=== PATIENT | male | born 1975 | race Hispanic/Latino ===

== ENCOUNTER 2020-06-29 23:12 | Observation (INO) | payer BC ==
--- OUTSIDE RECORDS SUMMARY | 2020-06-29 23:15 | XMS REPORT ---
:1975 Author Organization eClinicalWorks Care Team Providers Name Role Phone Imelda Rogersh Provider Role Unavailable Allergies, Adverse Reactions, Alerts Substance Reaction Event Type N.K.D.A. Info Not Available Non Drug Allergy Problems Problem Type Condition Code Onset Dates Condition Statu s Problem BMI 36.0-36.9,adult Z68.36 Active Problem Calculus of gallbladder without K80.20 Active cholecystitis without obstruction Problem Fatigue, unspecified type R53.83 Ac tive Assessment LUQ abdominal pain R10.12 Active Problem Hypersomnia G47.10 Active Problem Erectile dysfunction, unspecified N52.9 Active erectile dysfunction type Problem Prediabetes R73.03 Active Problem GERD without esophagitis K21.9 Act costa Problem Obstructive sleep apnea (adult) G47.33 Active (pediatric) Problem Mixed hyperlipidemia E78.2 Active Problem Dependence 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
--- OUTSIDE RECORDS SUMMARY | 2020-06-29 23:15 | XMS REPORT | Continuity of Care Document ---
:1975 Author Organization [facility] t Address [address] [place] [address] Care Team Providers Name Role Phone Unavailable Unavailable Unavailable Problems Condition Condition Condition Status Onset Resolution Last Treating Co mments Source Name Details Category Date Date Treatment Clinician Date Hypersomni Hypersomni Problem Active [facility] Fatigue, Fatigue, Problem [facility] BMI BMI Problem Active [facility] 36[facility]0-36.[facility], 36.0-36.9, [facility] - adult [facility] Prediabete Prediabete Problem Active [facility] Erectile Erectile Problem Active [facility] dysfunctio dysfunctio [facility] - n, n, [facility]oria unspecifie unspecifie l d erectile d erectile Ou tpati dysfunctio dysfunctio en t n type n type Clinics Dependence Dependence Problem Active [facility] other on other [facility] - enabling enabling Memori a machines machines l and and Outpati devices devices ent Clinics Mixed Mixed Problem Active [facility] hyperlipid hyperlipid [facility] - emia emia [facility] Calculus Calculus Problem Active [facility] - gallbladde gallbladde Me moria r without r without l cholecysti cholecysti Ou tpati tis tis ent without without Clinics obstructio obstructio n n Vitamin D Vitamin D Problem Active [facility] deficiency deficiency [facility] Obstructiv Obstructiv Problem Active [facility] e sleep e sleep [facility] - apnea apnea Memoria (adult) (adult) l (pediatric (pediatric Ou tpati ) ) ent Clinics GERD GERD Problem Active [facility] without without [facility] - esophagiti esophagiti Me moria s s l [facility] ent Clinics LUQ LUQ Diagnosis Active [facility] abdominal abdominal Luke s - pain pain [facility] Allergies, Adverse Reactions, Alerts This patient has no known allergies or adverse reactions. Medications Ordered Filled Start Stop Current Ordering Indication Dosage Frequency Signature Comments Components Source Medication Medication Date Date Medication? Clinician (SIG) Name Name Omeprazole Omeprazole 2019-0 Yes Naveed [address] [facility] [address] [facility] - 00:[facility]: [facility] 00 [facility] Vitamin D Vitamin D Yes Naveed [address] [facility] Immunizations Ordered Filled Immunization Date Status Comments Sourc e Immunization Name Name TDAP > 7 TDAP > 7 2018-10-[address] [facility] - Years-Adacel Years-Adacel 00:00:00 [facility] Afluria Afluria 2018-10-[address] [facility] 00[facility]00 [facility] Procedures This patient has no known procedures. Encounters Start End Encounter Admission Attending Care Care Encounter Source Date/Time Date/Time Type Type Clinicians Facility Department ID 2020-05-27 2020-05-27 [facility] [id number] [facility] 15:20:00 15:20:00 t [facility] 2020-03-19 2020-03-19 [facility] [id number] [facility] 16:00:00 16:00:00 t [facility] 2019-11-19 2019-11-19 [facility] [id number] [facility] 16:45:00 16:45:00 [facility] 2019-11-05 2019-11-05 [facility] [id number] [facility] 08:30:00 08:30:00 t [facility] 2019-08-30 2019-08-30 [facility] [id number] 08[facility]00:00 08:00:00 t [facility] Medicine Outpati ent Clinics 2019-08-19 2019-08-19 [facility] [id number] 10:07:00 10:07:00 t [facility] Medicine Outpati ent Clinics 2019-06-20 2019-06-20 [facility] [id number] [facility] 14:00:00 14:00:00 t [facility] Medicine Outpati ent Clinics 2019-05-21 2019-05-21 [facility] [id number] [address] 09:00:00 09:00:00 t [facility] Medicine Outpati ent Clinics 2019-04-29 2019-04-29 [facility] [id number] [address] 14:30:00 14:30:00 t [facility] Medicine Outpati ent Clinics 2018-12-31 2018-12-31 [facility] [id number] 13:00:00 13:00:00 t [facility] Medicine Outpati ent Clinics 2018-10-26 2018-10-26 [facility] [id number] 08:15:00 08:15:00 t [facility] Medicine Outpati ent Clinics Results This patient has no known results.
[2020-06-30 00:20] LABS: Absolute Lymphocytes (CBC) 0.6 K/uL (0.7-4.9); Basophils % 0.5 % (0-1.3); Lymphocytes % 8.3 % (15.3-44.8); MPV 9.2 fL (7.6-11.3); RBC Red Blood Cell Count 4.84 M/uL (4.33-5.43)
[2020-06-30 00:35] LABS: Albumin 3.9 g/dL (3.4-5.0); Bilirubin Direct 0.1 mg/dL (0-0.2); Bilirubin Total 0.6 mg/dL (0.2-1.0); Potassium 4.3 mmol/L (3.5-5.1); Protein, Total 7.9 g/dL (6.4-8.2)
[2020-06-30] MEDS ORDERED: NA CHLORIDE 0.9% 1,000 ML ONE (00:35)
[2020-06-30] MEDS ORDERED: FAMOTIDINE 20 MG/2 ML VIAL IV ONE (00:35)
--- NOTE | 2020-06-30 03:10 | ER ---
Nurse's Notes [facility] Name: Dago Faye Age: 44 yrs Sex: Male : 1975 Arrival Date: 06/29/2020 Time: 23:16 Bed 2 Private MD: Naveed Rogers Diagnosis: Pneumonia;Hypoxia Presentation: 06/29 23:30 Chief complaint: Patient states: I had surgery for hernia repair last . For the jb4 past two days I have been having upper right quadrant abdominal pain. tonight I took my bactrim and [place] at 6pm and Zofran at 8 pm. I think I may have taken 2 of my pain medication by accident because after I took it I felt worse and vomited which made me feel better. 23:30 Coronavirus screen: Client denies travel out of the [place] in the last 14 days. At this jb4 time, the client does not indicate any symptoms associated with coronavirus-19. Ebola Screen: No symptoms or risks identified at this time. Initial Sepsis Screen: Does the patient meet any 2 criteria? No. Patient's initial sepsis screen is negative. Does the patient have a suspected source of infection? No. Patient's initial sepsis screen is negative. Risk Assessment: Do you want to hurt yourself or someone else? Patient reports no desire to harm self or others. Onset of symptoms was June 27, 2020. Transition of care: patient was not received from another setting of care. 23:30 Method Of Arrival: Ambulatory jb4 23:30 Acuity: SHANTA 3 jb4 Historical: - Allergies: 23:30 No Known Allergies; jb4 - Home Meds: 23:30 Bactrim DS 800-160 mg Oral tab [Active]; [place] 5-325 mg Oral tab [Active]; Zofran (as jb4 hydrochloride) 4 mg Oral tab [Active]; - PMHx: 23:30 Kidney stones; Hernia; jb4 - PSHx: 23:30 Hernia repair; jb4 - Immunization history:: Adult Immunizations up to date. - Social history:: Smoking status: Patient denies any tobacco usage or history of. Patient/guardian denies using alcohol, street drugs. Screenin:30 Abuse screen: Denies threats or abuse. Nutritional screening: No deficits noted. jb4 Tuberculosis screening: No symptoms or risk factors identified. Fall Risk None identified. Assessment: 23:30 General: Appears in no apparent distress. uncomfortable, Behavior is calm, cooperative, jb4 appropriate for age. Pain: Complains of pain in right upper quadrant Pain does not radiate. Pain currently is 8 out of 10 on a pain scale. Quality of pain is described as stabbing, Pain began 2-3 days ago. Is continuous. Neuro: Level of Consciousness is awake, alert, obeys commands, Oriented to person, place, time, situation. Cardiovascular: Patient's skin is warm and dry. Respiratory: Airway is patent Respiratory effort is even, unlabored, Respiratory pattern is regular, symmetrical. GI: Abdomen is non-distended, obese, Reports upper abdominal pain, nausea, vomiting, surgical sight is clean dry and intact, no s/s of infection noted. : No signs and/or symptoms were reported regarding the genitourinary system. EENT: No signs and/or symptoms were reported regarding the EENT system. Derm: Skin is intact, Skin is pink, warm \T\ dry. Musculoskeletal: Circulation, motion, and sensation intact. Range of motion: intact in all extremities. 06/30 00:30 Reassessment: Patient appears in no apparent distress at this time. Patient and/or jb4 family updated on plan of care and expected duration. Pain level reassessed. Patient is alert, oriented x 3, equal unlabored respirations, skin warm/dry/pink. 01:30 Reassessment: Patient appears in no apparent distress at this time. Patient and/or jb4 family updated on plan of care and expected duration. Pain level reassessed. Patient is alert, oriented x 3, equal unlabored respirations, skin warm/dry/pink. 02:13 Reassessment: Patient appears in no apparent distress at this time. Patient and/or jb4 family updated on plan of care and expected duration. Pain level reassessed. Patient is alert, oriented x 3, equal unlabored respirations, skin warm/dry/pink. 03:00 Reassessment: Patient appears in no apparent distress at this time. Patient and/or jb4 family updated on plan of care and expected duration. Pain level reassessed. Patient is alert, oriented x 3, equal unlabored respirations, skin warm/dry/pink. Patient states feeling better. 04:00 Reassessment: Patient appears in no apparent distress at this time. Patient and/or jb4 family updated on plan of care and expected duration. Pain level reassessed. Patient is alert, oriented x 3, equal unlabored respirations, skin warm/dry/pink. 05:00 Reassessment: Patient and/or family updated on plan of care and expected duration. Pain jb4 level reassessed. Pt is resting in bed with eyes closed, respirations are even and unlabored. no s/s of pain or distress noted. 05:55 Reassessment: Patient appears in no apparent distress at this time. No changes from jb4 previously documented assessment. Patient and/or family updated on plan of care and expected duration. Pain level reassessed. Attempted to call report, on hold for 12 minutes, will retry in 5 minutes. Vital Signs: 06/29 23:30 BP 120 / 57; Pulse 84; Resp 16; Temp 99.0(O); Pulse Ox 95% on R/A; Weight 110.68 kg jb4 (R); Height 5 ft. 7 in. (170.18 cm); Pain 8/10; 06/30 00:30 BP 118 / 65; Pulse 73; Resp 16; Pulse Ox 95% on R/A; jb4 02:00 BP 106 / 64; Pulse 72; Resp 16; Pulse Ox 93% on R/A; jb4 03:00 BP 102 / 68; Pulse 67; Resp 16; Pulse Ox 95% on R/A; jb4 04:00 BP 107 / 69; Pulse 66; Resp 16; Pulse Ox 96% on R/A; jb4 05:30 BP 107 / 78; Pulse 61; Resp 16; Pulse Ox 95% on R/A; jb4 06/29 23:30 Body Mass Index 38.22 (110.68 kg, 170.18 cm) jb4 ED Course: 06/29 23:16 Patient arrived in ED. am2 23:17 Naveed Rogers DO is Private Physician. am2 23:28 Conner Brandt, MIKE is Primary Nurse. jb4 23:30 Arm band placed on right wrist. jb4 23:30 Patient has correct armband on for positive identification. Bed in low position. Call jb4 light in reach. Side rails up X 1. Pulse ox on. NIBP on. 23:42 Alex Mooney MD is Attending Physician. mh7 23:45 Triage completed. jb4 23:59 Inserted saline lock: 20 gauge in left antecubital area, using aseptic technique. Blood ds4 collected. 06/30 01:08 CT Abd/Pelvis - IV Contrast Only In Process Unspecified. EDMS 01:47 Chest Single View XRAY In Process Unspecified. EDMS 03:09 Anastasia Simpson MD is Hospitalizing Provider. mh7 03:13 Tavon Alfonso DO is Hospitalizing Provider. la1 03:25 First set of blood cultures drawn by me, Second set of blood cultures drawn by me. ds4 03:43 Inserted saline lock: 20 gauge in right antecubital area, using aseptic technique. ds4 Blood collected. 06:08 No provider procedures requiring assistance completed. Patient admitted, IV remains in jb4 place. Administered Medications: 00:20 Not Given (Patient Refused): morphine 4 mg IVP once; RASS on ADMIN: Combtv4, Very jb4 Agttd3, Agttd2, Rstlss1, AlertClm0, Drwsy-1, Lt Sdtn-2, Mod Sdtn-3, Dp Sdtn-4, UnArsble-5 00:20 Not Given (Patient Refused): Zofran (Ondansetron) 4 mg IVP once; over 2 minutes jb4 00:28 Drug: Pepcid 20 mg Route: IVP; Site: left antecubital; jb4 01:00 Follow up: Response: No adverse reaction jb4 00:28 Drug: NS 0.9% 1000 ml Route: IV; Rate: 1000 ml; Site: left antecubital; jb4 01:15 Follow up: Response: No adverse reaction; IV Status: Completed infusion jb4 03:41 Drug: AZITHromycin 500 mg Route: IVPB; Infused Over: 1 hrs; Site: right antecubital; jb4 04:41 Follow up: Response: No adverse reaction; IV Status: Completed infusion jb4 03:42 Drug: Rocephin - (cefTRIAXone) 1 grams {Note: Given IVP per pharmacy protocol.} Route: jb4 IVPB; Infused Over: 30 mins; Site: left antecubital; 03:44 Follow up: IV Status: Completed infusion jb4 04:08 Follow up: Response: No adverse reaction jb4 Outcome: 03:09 Decision to Hospitalize by Provider. mh7 06:08 Admitted to Med/surg accompanied by nurse, via wheelchair, room 205, with chart, Report jb4 called to MIKE Louise 06:08 Condition: stable 06:08 Discharge instructions given to patient, Instructed on the need for admit, Demonstrated understanding of instructions. 06:09 Patient left the ED. jb4 Signatures: Dispatcher [employer] EDMS Catracho Johnson ds4 Kwaku Card, AGRICULTURAL SYSTEMS SPECIALIST-C AGRICULTURAL SYSTEMS SPECIALIST-Cla1 Conner Brandt RN RN jb4 Mirtha Nazario Maurice, MD MD 7 Corrections: (The following items were deleted from the chart) 05:56 05:55 Reassessment: Patient appears in no apparent distress at this time. No changes jb4 from previously documented assessment. Patient and/or family updated on plan of care and expected duration. Pain level reassessed. jb4
--- NOTE | 2020-06-30 03:10 | EDPHYS ---
Physician Documentation [facility] Name: Dago Faye Age: 44 yrs Sex: Male : 1975 Arrival Date: 06/29/2020 Time: 23:16 Bed 2 Private MD: Naveed Rogers ED Physician Alex Mooney HPI: 06/30 00:15 This 44 yrs old Male presents to ER via Ambulatory with complaints of Post mh7 Surgical Pain, Nausea/Vomiting, chills. 00:15 The patient presents with abdominal pain in the upper abdomen. Onset: The mh7 symptoms/episode began/occurred 2 day(s) ago. The symptoms do not radiate. Associated signs and symptoms: Pertinent positives: nausea and vomiting, Pertinent negatives: anorexia, blood in stools, chest pain, constipation, diarrhea, dysuria, fever, headache, hematuria, palpitations, shortness of breath, testicular pain, vomiting blood. The symptoms are described as intermittent, vague, waxing/waning. Modifying factors: The symptoms are alleviated by nothing, the symptoms are aggravated by food. Severity of pain: At its worst the pain was moderate yesterday, in the emergency department the pain has improved moderately. Historical: - Allergies: 06/29 23:30 No Known Allergies; jb4 - Home Meds: 23:30 Bactrim DS 800-160 mg Oral tab [Active]; [place] 5-325 mg Oral tab [Active]; Zofran (as jb4 hydrochloride) 4 mg Oral tab [Active]; - PMHx: 23:30 Kidney stones; Hernia; jb4 - PSHx: 23:30 Hernia repair; jb4 - Immunization history:: Adult Immunizations up to date. - Social history:: Smoking status: Patient denies any tobacco usage or history of. Patient/guardian denies using alcohol, street drugs. ROS: 06/30 00:15 Constitutional: Negative for fever, chills, and weight loss, Eyes: Negative for injury, mh7 pain, redness, and discharge, ENT: Negative for injury, pain, and discharge, Neck: Negative for injury, pain, and swelling, Cardiovascular: Negative for chest pain, palpitations, and edema, Respiratory: Negative for shortness of breath, cough, wheezing, and pleuritic chest pain, Back: Negative for injury and pain, : Negative for injury, bleeding, discharge, and swelling, MS/Extremity: Negative for injury and deformity, Skin: Negative for injury, rash, and discoloration, Neuro: Negative for headache, weakness, numbness, tingling, and seizure, Psych: Negative for depression, anxiety, suicide ideation, homicidal ideation, and hallucinations, Allergy/Immunology: Negative for hives, rash, and allergies, Endocrine: Negative for neck swelling, polydipsia, polyuria, polyphagia, and marked weight changes, Hematologic/Lymphatic: Negative for swollen nodes, abnormal bleeding, and unusual bruising. Exam: 00:15 Constitutional: This is a well developed, well nourished patient who is awake, alert, mh7 and in no acute distress. Head/Face: Normocephalic, atraumatic. Eyes: Pupils equal round and reactive to light, extra-ocular motions intact. Lids and lashes normal. Conjunctiva and sclera are non-icteric and not injected. Cornea within normal limits. Periorbital areas with no swelling, redness, or edema. Neck: Trachea midline, no thyromegaly or masses palpated, and no cervical lymphadenopathy. Supple, full range of motion without nuchal rigidity, or vertebral point tenderness. No Meningismus. Chest/axilla: Normal chest wall appearance and motion. Nontender with no deformity. No lesions are appreciated. Cardiovascular: Regular rate and rhythm with a normal S1 and S2. No gallops, murmurs, or rubs. Normal PMI, no JVD. No pulse deficits. Respiratory: Lungs have equal breath sounds bilaterally, clear to auscultation and percussion. No rales, rhonchi or wheezes noted. No increased work of breathing, no retractions or nasal flaring. 00:15 Back: No spinal tenderness. No costovertebral tenderness. Full range of motion. Skin: Warm, dry with normal turgor. Normal color with no rashes, no lesions, and no evidence of cellulitis. MS/ Extremity: Pulses equal, no cyanosis. Neurovascular intact. Full, normal range of motion. Neuro: Awake and alert, GCS 15, oriented to person, place, time, and situation. Cranial nerves II-XII grossly intact. Motor strength 5/5 in all extremities. Sensory grossly intact. Cerebellar exam normal. Normal gait. Psych: Awake, alert, with orientation to person, place and time. Behavior, mood, and affect are within normal limits. 00:15 Abdomen/GI: Inspection: abdomen appears normal, obese Bowel sounds: normal, in all quadrants, Palpation: mild abdominal tenderness, in the epigastric area and right upper quadrant, Rectal exam: the exam is deferred, because of patient request, Indicators: McBurney's point is not tender, Murillo's sign is negative, Rovsing's sign is negative, Obturator sign is negative, Psoas sign is negative, Liver: no appreciated palpable abnormalities, Hernia: not appreciated. Vital Signs: 06/29 23:30 BP 120 / 57; Pulse 84; Resp 16; Temp 99.0(O); Pulse Ox 95% on R/A; Weight 110.68 kg jb4 (R); Height 5 ft. 7 in. (170.18 cm); Pain 8/10; 06/30 00:30 BP 118 / 65; Pulse 73; Resp 16; Pulse Ox 95% on R/A; jb4 02:00 BP 106 / 64; Pulse 72; Resp 16; Pulse Ox 93% on R/A; jb4 03:00 BP 102 / 68; Pulse 67; Resp 16; Pulse Ox 95% on R/A; jb4 04:00 BP 107 / 69; Pulse 66; Resp 16; Pulse Ox 96% on R/A; jb4 05:30 BP 107 / 78; Pulse 61; Resp 16; Pulse Ox 95% on R/A; jb4 06/29 23:30 Body Mass Index 38.22 (110.68 kg, 170.18 cm) jb4 MDM: 00:13 Patient medically screened. [facility] 03:07 Differential diagnosis: bowel obstruction, cholecystitis, Cholelithiasis, mh7 diverticulitis, gastritis, non-specific abd pain, pancreatitis, Peptic Ulcer Disease, Pyelonephritis, Ureterolithiasis, urinary tract infection. Data reviewed: vital signs, nurses notes, old medical records, lab test result(s), CBC, electrolytes, urinalysis, radiologic studies, CT scan, plain films. Data interpreted: Pulse oximetry: on room air is 93 %. Interpretation: hypoxia. Counseling: I had a detailed discussion with the patient and/or guardian regarding: the historical points, exam findings, and any diagnostic results supporting the discharge/admit diagnosis, lab results, radiology results, the need for further work-up and treatment in the hospital. Response to treatment: the patient's symptoms have markedly improved after treatment. 06/29 23:47 Order name: Basic Metabolic Panel; Complete Time: 00:49 [facility] 06/29 23:47 Order name: CBC with Diff; Complete Time: 00:49 [facility] 06/29 23:47 Order name: Hepatic Function; Complete Time: 00:49 [facility] 06/29 23:47 Order name: Lipase; Complete Time: 00:49 [facility] 06/30 02:36 Order name: Blood Culture Adult (2) [facility] 06/30 03:31 Order name: COVID-19 [facility] 06/30 00:15 Order name: CT Abd/Pelvis - IV Contrast Only [facility] 06/30 01:23 Order name: Chest Single View XRAY [facility] 06/30 05:23 Order name: SARS-COV-2 RT PCR [facility] 06/29 23:47 Order name: IV Saline Lock; Complete Time: 23:56 [facility] 06/29 23:47 Order name: Labs collected and sent; Complete Time: 23:58 [facility] 06/30 00:14 Order name: EKG - Nurse/Tech; Complete Time: 00:39 [facility] 06/30 00:14 Order name: Urine Dipstick-Ancillary (obtain specimen); Complete Time: 01:17 [facility] Administered Medications: 00:20 Not Given (Patient Refused): morphine 4 mg IVP once; RASS on ADMIN: Combtv4, Very jb4 Agttd3, Agttd2, Rstlss1, AlertClm0, Drwsy-1, Lt Sdtn-2, Mod Sdtn-3, Dp Sdtn-4, UnArsble-5 00:20 Not Given (Patient Refused): Zofran (Ondansetron) 4 mg IVP once; over 2 minutes jb4 00:28 Drug: Pepcid 20 mg Route: IVP; Site: left antecubital; jb4 01:00 Follow up: Response: No adverse reaction jb4 00:28 Drug: NS 0.9% 1000 ml Route: IV; Rate: 1000 ml; Site: left antecubital; jb4 01:15 Follow up: Response: No adverse reaction; IV Status: Completed infusion 4 03:41 Drug: AZITHromycin 500 mg Route: IVPB; Infused Over: 1 hrs; Site: right antecubital; jb4 04:41 Follow up: Response: No adverse reaction; IV Status: Completed infusion jb4 03:42 Drug: Rocephin - (cefTRIAXone) 1 grams {Note: Given IVP per pharmacy protocol.} Route: jb4 IVPB; Infused Over: 30 mins; Site: left antecubital; 03:44 Follow up: IV Status: Completed infusion jb4 04:08 Follow up: Response: No adverse reaction jb4 Disposition: 06/30/20 03:09 Hospitalization ordered by Tavon Alfonso for Observation. Preliminary diagnosis are Pneumonia, Hypoxia. - Bed requested for Telemetry/MedSurg (observation). - Status is Observation. jb4 - Condition is Stable. - Problem is new. - Symptoms have improved. Signatures: Dispatcher [employer] EDMS Naty Coombs RN RN Kwaku Card, MASSEUR/MASSEUSE-C MASSEUR/MASSEUSE-Cla1 Conner Brandt RN RN jb4 Alex Mooney MD MD 7 Corrections: (The following items were deleted from the chart) 03:13 03:09 Hospitalization Ordered by Anastasia Simpson MD for Observation. Preliminary la1 diagnosis is Pneumonia; Hypoxia. Bed requested for Telemetry/MedSurg (observation). Status is Observation. Condition is Stable. Problem is new. Symptoms have improved. mh7 05:32 03:13 06/30/2020 03:09 Hospitalization Ordered by Tavon Alfonso DO for Observation. Preliminary diagnosis is Pneumonia; Hypoxia. Bed requested for Telemetry/MedSurg (observation). Status is Observation. Condition is Stable. Problem is new. Symptoms have improved. la1 06:09 05:32 06/30/2020 03:09 Hospitalization Ordered by Tavon Alfonso DO for Observation. jb4 Preliminary diagnosis is Pneumonia; Hypoxia. Bed requested for Telemetry/MedSurg (observation). Status is Observation. Condition is Stable. Problem is new. Symptoms have improved. mw
[2020-06-30] MEDS ORDERED: NA CHLORIDE 0.9% 250 ML ONE (03:38)
[2020-06-30] MEDS ORDERED: CEFTRIAXONE/SWI 1gm 1 GM/10 ML SYR ONE (03:38)
[2020-06-30] MEDS ORDERED: AZITHROMYCIN 500 MG INJ IVPB ONE (03:38)
--- NOTE | 2020-06-30 03:41 | P.HP ---
Certification for Inpatient Patient admitted to: Observation With expected LOS: <2 Midnights Patient will require the following post-hospital care: None Practitioner: I am a practitioner with admitting privileges, knowledge of patient current condition, hospital course, and medical plan of care. Services: Services provided to patient in accordance with Admission requirements found in Title 42 Section 412.3 of the Code of Federal Regulations <Kwaku Card - Last Filed: 06/30/20 03:35> Patient admitted to: Observation <Tavon Alfonso - Last Filed: 06/30/20 13:04> Patient History Date of Service: 06/30/20 Primary Care Provider: Dr. Rogers, Surgery- Dr. Blood Reason for admission: Pneumonia History of Present Illness: 44-year-old male with history of obstructive sleep apnea and hernia repair on June 25 presents emergency department for right upper quadrant pain, chills, malaise. Patient had hernia repair with Dr. Blood without complications last . Patient was evaluated in the emergency department found to have bilateral pneumonia, worse on the left when compared to the right. White blood cell count normal. Patient's oxygen saturation around the low 90s at time of evaluation in emergency department. ED provider wishes to admit patient under observation for further evaluation and management. When I saw the patient in the emergency department he was awake, alert, oriented x3. Patient reports very high right upper quadrant abdominal pain. On exam patient with some mild tenderness to the right upper quadrant. Patient does not appear septic at this time, vital signs within normal limits. Patient be admitted for further evaluation and management. - Past Medical/Surgical History -: Obstructive sleep apnea -: Hernia repair Psychosocial/ Personal History: Patient works in [employer] and lives with his mother at this time. - Family History Family History: Reviewed- Non-Contributory - Social History Smoking Status: Never smoker Alcohol use: No CD- Drugs: No Caffeine use: Yes Place of Residence: Home <KyawKwaku - Last Filed: 06/30/20 03:35> Date of Service: 06/30/20 Home medications list reviewed: Yes - Past Medical/Surgical History Diabetic: No <Tavon Alfonso - Last Filed: 06/30/20 13:04> Allergies No Known Allergies Allergy (Verified 06/30/20 06:25) Review of Systems 10-point ROS is otherwise unremarkable General: Chills, Malaise Respiratory: Shortness of Breath <Kwaku Card - Last Filed: 06/30/20 03:35> Physical Examination - Physical Exam General: Alert, In no apparent distress, Oriented x3 HEENT: Atraumatic, Normocephalic, PERRLA, Mucous membr. moist/pink Neck: Supple Respiratory: Diminished (Bilaterally) Cardiovascular: No edema, Regular rate/rhythm, Normal S1 S2 Capillary refill: <2 Seconds Gastrointestinal: Normal bowel sounds, No masses, No rebound, No guarding, Tenderness (Mild right upper quadrant tenderness) Musculoskeletal: No contractures, No erythema, No tenderness Integumentary: No tenderness/swelling, No erythema, No warmth Neurological: Normal speech, Normal strength at 5/5 x4 extr, Normal tone, Sensation intact - Studies Laboratory Data (last 24 hrs) 06/29/20 23:59: WBC 7.5, Hgb 15.1, Hct 44.0, Plt Count 153 06/29/20 23:59: Sodium 133 L, Potassium 4.3, BUN 24 H, Creatinine 1.24, Glucose 128 H, Total Bilirubin 0.6, AST 25, ALT 46, Alkaline Phosphatase 62, Lipase 97 <Kwaku Card - Last Filed: 06/30/20 03:35> - Studies Laboratory Data (last 24 hrs) 06/29/20 23:59: WBC 7.5, Hgb 15.1, Hct 44.0, Plt Count 153 06/29/20 23:59: Sodium 133 L, Potassium 4.3, BUN 24 H, Creatinine 1.24, Glucose 128 H, Total Bilirubin 0.6, AST 25, ALT 46, Alkaline Phosphatase 62, Lipase 97 <Tavon Alfonso - Last Filed: 06/30/20 13:04> Assessment and Plan - Plan Assessment Bilateral lower lobe pneumonia Right upper quadrant pain Obstructive sleep apnea Plan Bilateral lower lobe pneumonia: Continue with Rocephin/Zithromax this time. Blood cultures and sputum cultures ordered. Continue incentive spirometry. Repeat labs in the morning. DVT prophylaxis is Lovenox 40 mg subcutaneous once daily. Right upper quadrant pain: CT abdomen pelvis show postsurgical changes in relation to hernia repair but did not mention any abnormalities of the gallbladder. Will also order ultrasound to rule out cholecystitis. Will consult general surgery as necessary. Obstructive sleep apnea: Will allow patient to use CPAP machine. Discharge Plan: Home Plan to discharge in: 24 Hours - Advance Directives Does patient have a Living Will: No Does patient have a Durable POA for Healthcare: No - Code Status/Comfort Care Code Status Assessed: Yes (Patient is full code) Critical Care: No Time Spent Managing Pts Care (In Minutes): 55 <Kwaku Card - Last Filed: 06/30/20 03:35> - Plan Case discussed with [employer]. Agree with plan of care. See DC Summary for details. <Tavon Alfonso - Last Filed: 06/30/20 13:04>
[2020-06-30] MEDS ORDERED: NA CHLORIDE 0.9% 1,000 ML IV SCH (06:09)
[2020-06-30] MEDS ORDERED: ONDANSETRON 4 MG/2 ML VIAL IV PRN (06:09)
[2020-06-30] MEDS ORDERED: ALBUTEROL 2.5 MG/3 ML NEB SOL NEB PRN (06:09)
[2020-06-30] MEDS ORDERED: HYDROCODONE/APAP 7.5/325 MG TAB PO PRN (06:09)
[2020-06-30] MEDS ORDERED: IPRATROPIUM BROM 0.5MG/2.5ML NEB PRN (06:09)
[2020-06-30] MEDS ORDERED: ACETAMINOPHEN 500 MG TAB PO PRN (06:09)
[2020-06-30 06:31] VITALS: BMI 38.0
[2020-06-30 07:06] LABS: Magnesium 2.8 mg/dL (1.8-2.4)
--- NOTE | 2020-06-30 07:08 | P.DS ---
Admission Date: 06/30/20 Discharge Date: 06/30/20 Primary Care Provider: Dr. Rogers, Surgery- Dr. Blood Disposition: ROUTINE DISCHARGE Discharge Condition: GOOD Reason for Admission: Pneumonia Consultations: none Procedures: CT Scan: Mild upper pneumoperitoneum related to recent surgery, fatty liver, bilateral pneumonia. ABUS: COMPARISON: Abdomen Exam Complete dated 07/01/2019 FINDINGS: The gallbladder demonstrates no gallstones. No pericholecystic fluid or gallbladder wall thickening. The common bile duct is normal measuring 4 mm. The liver demonstrates no findings of intrahepatic biliary dilatation. IMPRESSION: Unremarkable examination. Medical Problem List: Bilateral lower lobe pneumonia Right upper quadrant abdominal pain likely related to mild upper pneumoperitoneum related to recent surgery, status post right inguinal hernia repair Obstructive sleep apnea Fatty liver Obesity, BMI 38.1 Brief History of Present Illness: 44-year-old male with history of obstructive sleep apnea and hernia repair on June 25 presents emergency department for right upper quadrant pain, chills, malaise. Patient had hernia repair with Dr. Blood without complications last . Patient was evaluated in the emergency department found to have bilateral pneumonia. White blood cell count normal. Patient's oxygen saturation around the low 90s at time of evaluation in emergency department. Patient also had some right upper quadrant pain unremarkable. Patient admitted for further evaluation and observation. Hospital Course: 44-year-old male presented to the emergency room with right upper quadrant abdominal pain, chills. Patient found to have bilateral lower lobe pneumonia. CT scan also revealed mild upper pneumoperitoneum likely related to recent surgery. Patient had laparoscopic right inguinal hernia repair last week. White count unremarkable. Room-air saturations within normal range. Patient was admitted for observation. Abdominal ultrasound performed. Patient stable this time. No significant abdominal pain, fever or chills noted. White count remains within normal range. Pro calcitonin negative. Patient encouraged to use incentive spirometer. At discharge patient will continue with Augmentin 875 mg 1 pill twice daily for 7 days and Zithromax 250 mg for 4 more days. Recommend to recheck chest x-ray in 2-4 weeks to monitor resolution. As mentioned above patient encouraged to use incentive spirometer. No heavy lifting, pushing or pulling is recommended at this time. Patient will need a follow up with his PCP within 1 week to follow up this hospitalization and continue his care. Recommend follow up with surgery to follow up his recent procedure. Patient with obstructive sleep apnea. Recommend to continue CPAP at night. Patient with fatty liver. This can be further monitored and addressed as an outpatient with his PCP. Education provided. Patient would benefit with GI evaluation in the near future. Lifestyle modification education provided. Vital Signs/Physical Exam: Temp Pulse Resp BP Pulse Ox 98.2 F 71 18 136/76 95 06/30/20 06:29 06/30/20 06:29 06/30/20 06:43 06/30/20 06:29 06/30/20 06:43 General: Alert, In no apparent distress, Oriented x3, Cooperative HEENT: Atraumatic Neck: Supple Respiratory: Clear to auscultation bilaterally, Normal air movement Cardiovascular: Normal pulses, Regular rate/rhythm Gastrointestinal: Normal bowel sounds, Soft and benign, Non-distended, No tenderness, No masses, No rebound, No guarding, Other (Postsurgical changes noted) Musculoskeletal: No erythema, No tenderness, No warmth Integumentary: No tenderness/swelling, No erythema, No warmth, No cyanosis Neurological: Normal speech, Normal strength at 5/5 x4 extr, Normal tone, Normal affect Laboratory Data at Discharge: WBC 7.5 K/uL (4.3-10.9) 06/29/20 23:59 Hgb 15.1 g/dL (13.6-17.9) 06/29/20 23:59 Hct 44.0 % (39.6-49.0) 06/29/20 23:59 Plt Count 153 K/uL (152-406) 06/29/20 23:59 Sodium 133 mmol/L (136-145) L 06/29/20 23:59 Potassium 4.3 mmol/L (3.5-5.1) 06/29/20 23:59 BUN 24 mg/dL (7-18) H 06/29/20 23:59 Creatinine 1.24 mg/dL (0.55-1.3) 06/29/20 23:59 Glucose 128 mg/dL (74-106) H 06/29/20 23:59 Total Bilirubin 0.6 mg/dL (0.2-1.0) 06/29/20 23:59 AST 25 U/L (15-37) 06/29/20 23:59 ALT 46 U/L (12-78) 06/29/20 23:59 Alkaline Phosphatase 62 U/L (45-117) 06/29/20 23:59 Lipase 97 U/L (73-393) 06/29/20 23:59 Home Medications: Amox/Clavulanate [Augmentin 875-125 Tab] 1 each PO BID #14 tab 06/30/20 Azithromycin [Zithromax] 250 mg PO DAILY #4 tablet 06/30/20 Lactobacillus Acidophilus [Acidophilus Lactobacilli] 1 each PO BID #14 capsule 06/30/20 New Medications: Lactobacillus Acidophilus [Acidophilus Lactobacilli] 1 each PO BID #14 capsule Amox/Clavulanate [Augmentin 875-125 Tab] 1 each PO BID #14 tab Azithromycin [Zithromax] 250 mg PO DAILY #4 tablet Patient Discharge Instructions: 1. Recommend follow up with PCP in 1 week to follow up this hospitalization. 2. Patient presented to the emergency room with right upper quadrant abdominal pain, chills. Patient found to have bilateral lower lobe pneumonia. CT scan also revealed mild upper pneumoperitoneum likely related to recent surgery. Patient had laparoscopic right inguinal hernia repair last week. White count unremarkable. Room-air saturations within normal range. Patient was admitted for observation. Abdominal ultrasound performed. Patient stable this time. No significant abdominal pain, fever or chills noted. White count remains within normal range. Patient encouraged to use incentive spirometer. At discharge patient will continue with Augmentin 875 mg 1 pill twice daily for 7 days and Zithromax 250 mg for 4 more days. Recommend to recheck chest x-ray in 2-4 weeks to monitor resolution. As mentioned above patient encouraged to use incentive spirometer. No heavy lifting, pushing or pulling is recommended at this time. Patient will need a follow up with his PCP within 1 week to follow up this hospitalization and continue his care. Recommend follow up with surgery to follow up his recent procedure. 3. Patient with obstructive sleep apnea. Recommend to continue CPAP at night. 4. Patient with fatty liver. This can be further monitored and addressed as an outpatient with his PCP. Education provided. Patient would benefit with GI evaluation in the near future. 5. Lifestyle modification education provided. Diet: AHA Activity: Ad maycol Time spent managing pt's care (in minutes): 55
[2020-06-30 07:12] LABS: Absolute Lymphocytes (CBC) 1.3 K/uL (0.7-4.9); Basophils % 0.6 % (0-1.3); Hematocrit 43.3 % (39.6-49.0); Lymphocytes % 22.4 % (15.3-44.8); MPV 9.2 fL (7.6-11.3); RBC Red Blood Cell Count 4.77 M/uL (4.33-5.43)
[2020-06-30 08:10] VITALS: BP 124/71; TEMP 97.2
[2020-06-30 08:38] VITALS: O2SAT 95
--- NOTE | 2020-06-30 08:42 | RAD REPORT ---
EXAM DESCRIPTION: US - Abdomen Exam Limited - 06/30/2020 8:09 am CLINICAL HISTORY: RUQ pain Abdominal pain COMPARISON: Abdomen Exam Complete dated 07/01/2019 FINDINGS: The gallbladder demonstrates no gallstones. No pericholecystic fluid or gallbladder wall t hickening. The common bile duct is normal measuring 4 mm. The liver demonstrates no findings of intrahepatic biliary dilatation. IMPRESSION: Unremarkable examination.
[2020-06-30] MEDS ORDERED: ENOXAPARIN 40 MG/0.4 ML SQ SCH (09:00)
--- NOTE | 2020-06-30 15:12 | RAD REPORT ---
EXAM DESCRIPTION: Chest Single View CLINICAL HISTORY: PAIN COMPARISON: None. FINDINGS: Single frontal radiograph view of the chest. Cardiomediastinal silhouette: Normal size and contour. Lungs: Mild bibasilar opacities. Low lung volumes. No pneumothorax. Bones: No acute osseous abnormality. Upper abdomen: Known free intraperitoneal air identified on this study. IMPRESSION: 1. Mild bibasilar opacities may be related to atelectasis or developing pneumonic proces s. Electronically signed by: Kendrick Phipps 06/30/2020 1:58 AM CDT Due to temporary technical issues with the PACS/Fluency reporting system, reports are being signed by the in house radiologist without review as a courtesy to ensure prompt reporting. The interpreting r adiologist is fully responsible for the content of the report.
--- NOTE | 2020-06-30 15:33 | RAD REPORT ---
EXAM DESCRIPTION: Abdomen Pelvis W Contrast ADDENDUM #1 ADDENDUM: THIS REPORT CONTAINS FINDINGS THAT MAY BE CRITICAL TO PATIENT'S CARE: The findings were verbally discussed via telephone conference with Alex Mooney by Dr. Tripathi on 06/30/2020 1:22 AM CDT. The results were acknowledged and understood. Electronically signed by: Archie Tripathi DO 06/30/2020 1:22 AM CDT End of Addendum PROCEDURE: CT Abdomen and Pelvis With Intravenous Contrast CLINICAL HISTORY: The patient is 44 years old and is Male; ABD PAIN TECHNIQUE: Axial computed tomography images of the abdomen and pelvis with intravenous contrast. S agittal and coronal reformatted images were created and reviewed. This CT exam was performed using one or more of the following dose reduction techniques: automated exposure control, adjustment of t he mA and/or kV according to patient size, and/or use of iterative reconstruction technique. COMPARISON: CT abdomen and pelvis dated June 19, 2017. FINDINGS: LUNG BASES: Bilateral lower lobe consolidations, right greater than left with air bronc hograms most suggestive of infectious process. ABDOMEN: LIVER: Unchanged hepatic steatosis. GALLBLADDER AND BILE DUCTS: Unremarkable. No calcified stones. No ductal dilation. PANCREAS: Unremarkable. No mass. No ductal dilation. SPLEEN: Unremarkable. No splenomegaly. ADRENALS: Unremarkable. No mass. KIDNEYS AND URETERS: Unremarkable. No solid mass. No hydronephrosis. STOMACH AND BOWEL: Unremarkable. No obstruction. No mucosal thickening. PELVIS: APPENDIX: No findings to suggest acute appendicitis. BLADDER: Unremarkable. No mass. REPRODUCTIVE: Unremarkable as visualized. ABDOMEN and PELVIS: INTRAPERITONEAL SPACE: Scattered pneumoperitoneum in the upper abdomen. No significant fluid collection. BONES/JOINTS: Multifactorial L5-S1 degenerative changes. No acute fracture. No dislocation. SOFT TISSUES: Interval right inguinal hernia repair with amount regional stranding. Periumbilical soft tissue thickening and trace right inguinal subcutaneous emphysema. VASCULATURE: Unremarkable. No abdominal aortic aneurysm. LYMPH NODES: Unremarkable. No enlarged lymph nodes. IMPRESSION: 1. Mild upper abdominal pneumoperitoneum most likely postoperative. 2. Prior right inguinal hernia repair with regional fat stranding. 3. Bilateral lower lobe consolidations, right greater than left with air bronchograms most suggesti ve of infectious process. 4. Unchanged hepatic steatosis. Electronically signed by: Archie Tripathi DO 06/30/2020 1:17 AM CDT Due to temporary technical issues with the PACS/Fluency reporting system, reports are being signed by the in house radiologist without review as a courtesy to ensure prompt reporting. The interpreting r adiologist is fully responsible for the content of the report.
[2020-07-01] MEDS ORDERED: PANTOPRAZOLE 40MG TABLET PO SCH (06:30)
--- NOTE | 2020-07-01 07:15 | EKG ---
Test Date: 2020-06-30 Test Time: 00:36:25 Project Controller: DAISHA MEASUREMENT RESULTS: Intervals: Rate: 66 AK: 154 QRSD: 88 QT: 384 QTc: 402 [place]: P: 52 AK: 154 QRS: 9 T: 14 INTERPRETIVE STATEMENTS: Normal sinus rhythm Normal ECG No previous ECG available for comparison Electronically Signed On 07-01-20 07:13:38 CDT by Michael Kearns
[2020-07-01] MEDS ORDERED: AZITHROMYCIN IV 500 MG in NA CHLORIDE 0.9% 250 ML IVPB SCH (09:00)
[2020-07-01] MEDS ORDERED: CEFTRIAXONE 1 GM/NS 50 ML 1 GM/50 ML BAG IV SCH (09:00)
== END 2020-06-30 10:39 | disposition home or self-care (01) ==
LOC: ER 23:12 → ERHOLD 06-30 03:33 → 2ND 06-30 05:57
PROVIDERS: ADMIT Family Medicine; ATTEND Family Medicine
DX: J18.9 Pneumonia, unspecified organism (principal); G47.33 Obstructive sleep apnea (adult) (pediatric); K76.0 Fatty (change of) liver, not elsewhere classified; E66.9 Obesity, unspecified; Z68.38 Body mass index [BMI] 38.0-38.9, adult; Z20.828 Contact with and (suspected) exposure to other viral communicable diseases
CPT/HCPCS: 96365; 96361; 93005; 87040 ×2; 85025 ×2; 80048 ×2; 36415; 83735; 80076; 83690; 84145; 74177; 71045; 76705; 94010; 96375; 99285; U0003; Q9967; J0456; J1650; J0696; J7050; J7030 ×2; G0378 ×2

== ENCOUNTER 2021-12-26 16:46 | Emergency (ER) | payer BC ==
--- OUTSIDE RECORDS SUMMARY | 2021-12-26 16:48 | XMS REPORT | Continuity of Care Document ---
:1975 Author Organization [facility] t Address [address] [place] [address] Care Team Providers Name Role Phone Libby Rogers Attending Clinician Unavailable Problems This patient has no known problems. Allergies, Adverse Reactions, Alerts This patient has no known allergies or adverse reactions. Medications Ordered Filled Start Stop Current Ordering Indication Dosage Frequency Signature Comments Components Source Medication Medication Date Date Medication? Clinician (SIG) Name Name Omeprazole Omeprazole Yes Naveed [address] [facility]ics Vitamin D Vitamin D Yes Naveed [address] [facility] Immunizations Ordered Filled Immunization Date Status Comments Sourc e Immunization Name Name TDAP > 7 TDAP > 7 2018-10-[address] [facility] - Years-Adacel Years-Adacel 00:00:00 [facility] Afluria Afluria 2018-10-[address] [facility] 00:[facility]00 [facility] Procedures This patient has no known procedures. Encounters Start End Encounter Admission Attending Care Care Encounter Source Date/Time Date/Time Type Type Clinicians Facility Department ID 2021[facility]10-13 [facility] [id number] [facility] 2021-10-13 Outpatient RogersNITHYA bach [facility] Naveed [id number] [facility] 2021-10-13 Outpatient Rogers, [facility]LMLC [facility] Naveed [id number] [facility] 2021-10-13 Outpatient Rogers, [facility] 13:30:[facility] Naveed [id number] [facility] 2021-10-13 Outpatient Rogers, [facility] N[facility]ed [id number] [facility] 2021-10-13 [facility] Naveed [id number] [facility] 2021-10-18 2021-10-18 ambulatory [facility]LMLC [facility] [id number] [facility] 2021-06-11 2021-06-11 Outpatient STLMLC [facility] [id number] [facility] 2021-06-11 2021-06-11 ambulatory STLMLC [facility] [id number] [facility] 2021-04-27 2021-04-27 Outpatient STLMLC [facility] [id number] [facility] 2021-04-07 2021-04-07 Outpatient STLMLC [facility] [id number] [facility] 2021-04-06 2021-04-06 Outpatient STLMLC [facility] [id number] [facility] 2021-01-04 2021-01-04 Outpatient STLMLC [facility] [id number] [facility] 2020-10-05 2020-10-05 Outpatient STLMLC [facility] [id number] [facility] 2020-07-29 2020-07-29 [facility] [id number] [facility] 2020-07-21 2020-07-21 [facility] [id number] [facility] 2020-07-01 2020-07-01 [facility] [id number] [facility] 2020-06-29 2020-06-29 [facility] [id number] [facility] 2020-05-27 2020-05-27 [facility] [id number] [facility] 15:20[facility] 15:20:[address] [facility] [address] [facility] Medicine l Medicine Outpati ent Clinics 2020-03-19 2020-03-19 [facility] [id number] [facility] 16:00:00 16:00:00 [facility] [place] [address] [facility] Medicine l Medicine Outpati ent Clinics 2019-11-19 2019-11-19 [facility] [id number] [facility] 16[facility]45:00 16:45:00 [facility] [place] [address] [facility] Medicine l Medicine Outpati ent Clinics 2019-11-05 2019-11-05 [facility] [id number] 08[facility]30:00 08:30:00 [facility] [place] [address] [facility] Medicine l Medicine Outpati ent Clinics 2019-08-30 2019-08-30 [facility] [id number] 08:00:00 08:00:00 [facility] [place] [address] [facility] Medicine l Medicine Outpati ent Clinics 2019-08-19 2019-08-19 [facility] [id number] 10:07:00 10:07:00 [facility] [place] [address] [facility] Medicine l Medicine Outpati ent Clinics 2019-06-20 2019-06-20 [facility] [id number] 14:00:00 14:00:00 [facility] Medicine Outpati ent Clinics 2019-05-21 2019-05-21 [facility] [id number] [facility] 09:00:00 09:00:00 [facility] Medicine Outpati ent Clinics 2019-04-29 2019-04-29 [facility] [id number] 14:30:00 14:30:00 [facility] Medicine Outpati ent Clinics 2018-12-31 2018-12-31 [facility] [id number] [facility] 13:00:00 13:00:00 [facility] Medicine Outpati ent Clinics 2018-10-26 2018-10-26 [facility] [id number] 08:15:00 08:15:00 [facility] Outpati ent Clinics Results This patient has no known results.
--- NOTE | 2021-12-26 18:27 | RAD REPORT ---
EXAM DESCRIPTION: CT - Head Brain Wo Cont - 12/26/2021 6:22 pm CLINICAL HISTORY: headache COMPARISON: No comparisons TECHNIQUE: All CT scans are performed using dose optimization technique as appropriate and may inclu de automated exposure control or mA/KV adjustment according to patient size. FINDINGS: No intracranial hemorrhage, hydrocephalus or extra-axial fluid collection.No areas of brai n edema or evidence of midline shift. The paranasal sinuses and mastoids are clear. The calvarium is intact. IMPRESSION: No acute intracranial abnormality.
[2021-12-26 19:33] LABS: SARS-COV-2 RT PCR POSITIVE (NEGATIVE)
--- NOTE | 2021-12-26 19:39 | ER ---
Nurse's Notes [facility] Name: Dago Faye Age: 46 yrs Sex: Male : 1975 Arrival Date: 12/26/2021 Time: 16:48 Bed 9 Private MD: Diagnosis: Coronavirus infection, unspecified Presentation: 12/26 16:53 Chief complaint: Patient states: ZAMAN, body aches, low grade fever since Monday. Slight ll1 diarrhea. Coronavirus screen: Vaccine status: Patient reports receiving the 2nd dose of the covid vaccine. Client denies travel out of the [place] in the last 14 days. diarrhea, fatigue, fever, headache, Client presents with at least one sign or symptom that may indicate coronavirus-19. Standard/surgical mask placed on the client. Ebola Screen: Patient denies travel to an Ebola-affected area in the 21 days before illness onset. Initial Sepsis Screen: Does the patient meet any 2 criteria? No. Patient's initial sepsis screen is negative. Does the patient have a suspected source of infection? No. Patient's initial sepsis screen is negative. Risk Assessment: Do you want to hurt yourself or someone else? Patient reports no desire to harm self or others. Onset of symptoms was December 24, 2021. 16:53 Method Of Arrival: Ambulatory ll1 16:53 Acuity: SHANTA 4 ll1 Triage Assessment: 16:56 General: Appears uncomfortable, Behavior is calm, cooperative, appropriate for age. ll1 Pain: Complains of pain in head Pain began 2-3 days ago. Also complains of no other associated symptoms. Neuro: Reports headache weakness. 16:56 Headache History: Denies prior headaches. GI: Reports diarrhea. ll1 Historical: - Allergies: 16:55 No Known Allergies; ll1 - PMHx: 16:55 Hernia; Kidney stones; CPAP-sleep apnea; ll1 - PSHx: 16:55 hernia repair; ll1 - Immunization history:: Client reports receiving the 2nd dose of the Covid vaccine, Flu vaccine status is unknown. - Social history:: Smoking status: Patient denies any tobacco usage or history of. Screenin:36 Abuse screen: Denies threats or abuse. Nutritional screening: No deficits noted. ll1 Tuberculosis screening: No symptoms or risk factors identified. 19:59 Fall Risk None identified. eb1 Assessment: 17:35 Reassessment: No changes from previously documented assessment. Patient and/or family ll1 updated on plan of care and expected duration. Pain level reassessed. Patient is alert, oriented x 3, equal unlabored respirations, skin warm/dry/pink. Gait steady. 19:22 General: Appears in no apparent distress. Behavior is calm, cooperative, appropriate eb1 for age. Pain: Complains of pain in forehead, right scientology and left scientology Pain currently is 10 out of 10 on a pain scale. Quality of pain is described as throbbing, Pain began 2-3 days ago. Neuro: No deficits noted. Cardiovascular: No deficits noted. Respiratory: No deficits noted. GI: Reports diarrhea. : No deficits noted. No signs and/or symptoms were reported regarding the genitourinary system. EENT: No deficits noted. No signs and/or symptoms were reported regarding the EENT system. Derm: No deficits noted. No signs and/or symptoms reported regarding the dermatologic system. Musculoskeletal: No deficits noted. No signs and/or symptoms reported regarding the musculoskeletal system. Vital Signs: 16:53 BP 149 / 91; Pulse 101; Resp 16; Temp 98.3; Pulse Ox 97% ; Weight 102.51 kg; Height 5 ll1 ft. 7 in. (170.18 cm); Pain 10/10; 19:30 BP 142 / 92; Pulse 81; Resp 16; Temp 101.2; Pulse Ox 96% ; Pain 10/10; eb1 16:53 Body Mass Index 35.40 (102.51 kg, 170.18 cm) ll1 ED Course: 16:48 Patient arrived in ED. ds1 16:49 Cullen Bowman PA is PHCP. jmm 16:49 Gustavo Shah MD is Attending Physician. jmm 16:55 Triage completed. ll1 16:56 Arm band placed on. ll1 17:36 Patient has correct armband on for positive identification. Bed in low position. Call ll1 light in reach. Side rails up X 1. Pulse ox on. NIBP on. 18:24 Head Brain Wo Cont In Process Unspecified. EDMS 19:24 No apparent distress. Awaiting ED provider evaluation. eb1 19:57 No provider procedures requiring assistance completed. eb1 19:59 Patient did not have IV access during this emergency room visit. eb1 Administered Medications: 19:45 Drug: Ibuprofen 400 mg Route: PO; eb1 Outcome: 19:38 Discharge ordered by MD. gonsalez 19:58 Discharged to home eb1 19:58 Condition: good 19:58 Discharge instructions given to patient, Instructed on discharge instructions, Demonstrated understanding of instructions. 20:08 Patient left the ED. eb1 Signatures: Dispatcher [employer] EDMS Cullen Bowman PA PA jmm Sanford, Demi ds1 Ene Coates RN RN eb1 Santa Danielson RN RN ll1
--- NOTE | 2021-12-26 19:39 | EDPHYS ---
Physician Documentation [facility] Name: Dago Faye Age: 46 yrs Sex: Male : 1975 Arrival Date: 12/26/2021 Time: 16:48 Bed 9 Private MD: SRAVANTHI Physician Gustavo Shah HPI: 12/26 17:25 This 46 yrs old Male presents to ER via Ambulatory with complaints of Cold jmm Symptoms, Headache. 17:25 The patient complains of pain to the forehead, left base of the skull and right base of jmm the skull. Onset: The symptoms/episode began/occurred gradually, 3 day(s) ago. Associated signs and symptoms: Pertinent positives: fever, Pertinent negatives: neck stiffness, vomiting. This is a 46-year-old male with history of kidney stones, sleep apnea the presents emerged part with complaints of frontal headache pain approximately 3 days ago. Patient also complains of fever and fatigue along with diarrhea. Denies vomiting.. Historical: - Allergies: 16:55 No Known Allergies; ll1 - PMHx: 16:55 Hernia; Kidney stones; CPAP-sleep apnea; ll1 - PSHx: 16:55 hernia repair; ll1 - Immunization history:: Client reports receiving the 2nd dose of the Covid vaccine, Flu vaccine status is unknown. - Social history:: Smoking status: Patient denies any tobacco usage or history of. ROS: 17:25 Constitutional: Positive for fever. jmm 17:25 ENT: Negative for sore throat. 17:25 Respiratory: Negative for cough, shortness of breath. 17:25 Abdomen/GI: Positive for diarrhea, Negative for abdominal pain, nausea and vomiting. 17:25 Neuro: Positive for headache. 17:25 All other systems are negative. Exam: 17:25 Constitutional: This is a well developed, well nourished patient who is awake, alert, jmm and in no acute distress. Head/Face: atraumatic. Eyes: EOMI, no conjunctival erythema appreciated ENT: Moist Mucus Membranes Neck: Trachea midline, Supple Chest/axilla: Normal chest wall appearance and motion. Cardiovascular: Regular rate and rhythm. No edema appreciated Respiratory: Normal respirations, no respiratory distress appreciated Abdomen/GI: Non distended, soft Back: Normal ROM Skin: General appearance color normal MS/ Extremity: Moves all extremities, no obvious deformities appreciated, no edema noted to the lower extremities Neuro: Awake and alert Psych: Behavior is normal, Mood is normal, Patient is cooperative and pleasant Vital Signs: 16:53 BP 149 / 91; Pulse 101; Resp 16; Temp 98.3; Pulse Ox 97% ; Weight 102.51 kg; Height 5 ll1 ft. 7 in. (170.18 cm); Pain 10/10; 19:30 BP 142 / 92; Pulse 81; Resp 16; Temp 101.2; Pulse Ox 96% ; Pain 10/10; eb1 16:53 Body Mass Index 35.40 (102.51 kg, 170.18 cm) ll1 MDM: 17:25 Patient medically screened. [facility] 19:38 Data reviewed: vital signs, nurses notes. Counseling: I had a detailed discussion with sunshine the patient and/or guardian regarding: the historical points, exam findings, and any diagnostic results supporting the discharge/admit diagnosis, lab results, radiology results, the need for outpatient follow up, to return to the emergency department if symptoms worsen or persist or if there are any questions or concerns that arise at home. 12/26 16:58 Order name: COVID-19/FLU A+B (Document "Date of Onset" if Symptomatic); Complete Time: ll1 19:38 12/26 17:34 Order name: Head Brain Wo Cont; Complete Time: 18:47 EDMS Administered Medications: 19:45 Drug: Ibuprofen 400 mg Route: PO; eb1 Disposition Summary: 12/26/21 19:38 Discharge Ordered Location: Home [facility] Condition: Stable [facility] Diagnosis - Coronavirus infection, unspecified [facility] Followup: [facility] - With: Private Physician - When: 2 - 3 days - Reason: Recheck today's complaints, Continuance of care, Re-evaluation by your physician Discharge Instructions: - Discharge Summary Sheet [facility] - COVID-19 [facility] Forms: - Medication Reconciliation Form [facility] - Thank You Letter [facility] - Antibiotic Education [facility] - Prescription Opioid Use [facility] - Work release form cs9 Addendum: 12/30/2021 18:37 Co-signature as Attending Physician, Gustavo Shah MD I agree with the assessment and c aviles plan of care. Signatures: Dispatcher [employer] EDGustavo Cabral MD MD cha Mickail, Joel, PA PA jmm Basinger, Emily, RN RN eb1 Santa Danielson RN RN ll1 Corrections: (The following items were deleted from the chart) 12/26 17:58 17:35 Head Brain Wo Cont+CT.RAD.BRZ ordered. EDMS EDMS
[2021-12-26] MEDS ORDERED: IBUPROFEN 400 MG TAB ONE (19:42)
[2021-12-26 20:32] VITALS: BP 142/92; TEMP 101.2; O2SAT 96
== END 2021-12-26 20:08 | disposition home or self-care (01) ==
LOC: ER 16:46
DX: U07.1 COVID-19 (principal); Z87.442 Personal history of urinary calculi
CPT/HCPCS: 0240U; 70450; 99283